=== PATIENT | male | born 1965 | race Caucasian/White ===

== ENCOUNTER 2023-02-14 19:08 | Inpatient (IN) | payer MEDICARE, OTHER ==
[~2023-02-14] VITALS: Ht 172.7 cm; Wt 81.2 kg
[2023-02-14] MEDS ORDERED: FUROSEMIDE 40MG/4ML VIAL IV ONE (19:30)
[2023-02-14] MEDS ORDERED: NITROGLYCERIN OINT 1GM/INCH UDPKT TD ONE (19:30)
[2023-02-14] MEDS ORDERED: LABETALOL HCL VIAL 20 MG/4 ML VIAL IV ONE (19:30)
[2023-02-14 19:31] LABS: BASOPHILS % 0.4 % (0.0-2.0); EOSINOPHILS % 2.6 % (0.0-5.0); HEMATOCRIT. 32.8 % (42.0-52.0); HEMOGLOBIN. 10.7 g/dL (14.0-18.0); LYMPHOCYTES % 22.5 % (20.0-50.0); MEAN CORPUSCULAR HEMOGLOBIN 30.5 pg (28.0-32.0); MEAN CORPUSCULAR VOLUME 93.9 fL (80.0-94.0); MEAN PLATELET VOLUME 8.8 fl (7.4-10.4); MONOCYTES % 11.1 % (2.0-8.0); NEUTROPHILS % 63.4 % (40.0-76.0); PLATELET 166 x1000/uL (130-400); RED BLOOD CELL COUNT 3.49 mill/uL (4.7-6.1); RED CELL DISTRIBUTION WIDTH 16.1 % (11.6-14.6)
[2023-02-14 19:38] LABS: CHLORIDE 114 mEq/L (98-107)
[2023-02-14] MEDS ORDERED: LABETALOL 5MG/ML SYR 20 MG/4 ML SYRINGE IV NR (19:45)
[2023-02-14 19:47] LABS: BG BASE EXCESS -4.9 mmol/L (-2.0-2.0); BG CARBOXYHEMOGLOBIN 0.6 % (0.5-1.5); BG DEOXYHEMOGLOBIN 1.1 % (0.0-5.0); BG FRACTION INSPIRED OXYGEN 50; BG HCO3 ACT 20.1 mmol/L (22.0-26.0); BG METHEMOGLOBIN 0.4 % (0.0-1.5); BG OXYGEN SATURATION 98.9 % (92.0-98.5); BG OXYHEMOGLOBIN 97.9 % (94.0-97.0); BG PCO2 37.4 mmHg (35.0-45.0); BG PH 7.349 (7.350-7.450); BG PO2 144.2 mmHg (75.0-100.0); BG TOTAL HEMOGLOBIN 11.3 g/dL (12.0-18.0); BG TOTAL RESPIRATORY RATE 22 b/min; BG VENT MODE MASK - BIPAP
[2023-02-15] VITALS (17 sets, daily range): BP systolic 132–173; BP diastolic 76–120
[2023-02-15 08:36] LABS: BASOPHILS % 0.4 % (0.0-2.0); EOSINOPHILS % 3.9 % (0.0-5.0); HEMATOCRIT. 31.2 % (42.0-52.0); HEMOGLOBIN. 10.3 g/dL (14.0-18.0); LYMPHOCYTES % 25.4 % (20.0-50.0); MEAN CORPUSCULAR HEMOGLOBIN 30.8 pg (28.0-32.0); MEAN CORPUSCULAR VOLUME 93.1 fL (80.0-94.0); MEAN PLATELET VOLUME 8.8 fl (7.4-10.4); MONOCYTES % 13.5 % (2.0-8.0); NEUTROPHILS % 56.8 % (40.0-76.0); PLATELET 148 x1000/uL (130-400); RED BLOOD CELL COUNT 3.35 mill/uL (4.7-6.1)
[2023-02-15] MEDS: FUROSEMIDE 40MG/4ML VIAL IVP SCH ×2 (08:49→17:17)
[2023-02-15] MEDS ORDERED: ENOXAPARIN 30MG/0.3ML SYR SUBCUT SCH (09:00)
[2023-02-15] MEDS ORDERED: PIPERACILLIN/TAZ 3.375G PREMIX 50 ML IV SCH (12:45)
[2023-02-15] MEDS ORDERED: ACETAMINOPHEN 325MG TABLET PO PRN (12:45)
[2023-02-15] MEDS ORDERED: CLONIDINE 0.1MG TABLET PO PRN (12:45)
[2023-02-15] MEDS ORDERED: ONDANSETRON HCL 4MG/2ML INJ IV PRN (12:45)
[2023-02-15 12:46] LABS: BG BASE EXCESS 1.5 mmol/L (-2.0-2.0); BG CARBOXYHEMOGLOBIN 0.9 % (0.5-1.5); BG DEOXYHEMOGLOBIN 1.5 % (0.0-5.0); BG FRACTION INSPIRED OXYGEN 50; BG HCO3 ACT 26.5 mmol/L (22.0-26.0); BG METHEMOGLOBIN 0.3 % (0.0-1.5); BG OXYGEN SATURATION 98.5 % (92.0-98.5); BG OXYHEMOGLOBIN 97.3 % (94.0-97.0); BG PCO2 43.4 mmHg (35.0-45.0); BG PH 7.404 (7.350-7.450); BG PO2 122.7 mmHg (75.0-100.0); BG SAMPLE SITE RIGHT RADIAL; BG TOTAL HEMOGLOBIN 12.2 g/dL (12.0-18.0); BG VENT MODE MASK - BIPAP
[2023-02-15] MEDS: DEXT 5%/0.45% NACL 1000ML 1,000 ML IV SCH (13:36)
[2023-02-15] MEDS: PIPERACILLIN/TAZOBACTAM 3.375G in DEXT 5% WATER 50ML IV SCH ×2 (14:54→22:33)
[2023-02-15] MEDS: IPRATROPIUM/ALBUTEROL 0.5-3(2.5)MG/3ML NEB HHN SCH ×2 (15:42→20:42)
[2023-02-15] MEDS ORDERED: HYDRALAZINE 20MG/ML VIAL IV PRN (16:15)
[2023-02-15] MEDS: LOSARTAN POTASSIUM 50 MG TABLET PO SCH (17:17)
[2023-02-15] MEDS ORDERED: VANCOMYCIN 1,750 MG in DEXT 5% WATER 500 ML IV SCH (18:30)
[2023-02-15] MEDS ORDERED: DEXTROSE 50% WATER 50ML SYRINGE IV PRN (20:15)
[2023-02-15] MEDS: INSULIN LISPRO 100 UNITS/ML SUBCUT SCH (21:00)
[2023-02-15] MEDS: BLOOD SUGAR DIAGNOSTIC STRIP TEST SCH (21:00)
[2023-02-16] VITALS (15 sets, daily range): BP systolic 109–162; BP diastolic 59–92
[2023-02-16] MEDS: IPRATROPIUM/ALBUTEROL 0.5-3(2.5)MG/3ML NEB HHN SCH ×5 (00:30→20:00)
[2023-02-16 01:13] LABS: CREATINE KINASE MB FRACTION 2.4 ng/mL (0.5-3.6)
[2023-02-16] MEDS: PIPERACILLIN/TAZOBACTAM 3.375G in DEXT 5% WATER 50ML IV SCH ×3 (05:22→21:12)
[2023-02-16 06:28] LABS: BASOPHILS % 0.5 % (0.0-2.0); EOSINOPHILS % 5.6 % (0.0-5.0); HEMOGLOBIN. 11.1 g/dL (14.0-18.0); MEAN CORPUSCULAR HEMOGLOBIN 30.9 pg (28.0-32.0); MEAN CORPUSCULAR VOLUME 91.9 fL (80.0-94.0); MEAN PLATELET VOLUME 8.4 fl (7.4-10.4); MONOCYTES % 11.4 % (2.0-8.0); NEUTROPHILS % 61.5 % (40.0-76.0); PLATELET 150 x1000/uL (130-400); RED BLOOD CELL COUNT 3.59 mill/uL (4.7-6.1); RED CELL DISTRIBUTION WIDTH 15.8 % (11.6-14.6)
[2023-02-16] MEDS ORDERED: VANCOMYCIN 750MG PREMIX 150 ML IV SCH (07:00)
[2023-02-16] MEDS: BLOOD SUGAR DIAGNOSTIC STRIP TEST SCH ×4 (07:30→21:11)
[2023-02-16] MEDS: INSULIN LISPRO 100 UNITS/ML SUBCUT SCH ×4 (08:00→21:00)
[2023-02-16 08:03] LABS: BG BASE EXCESS 5.7 mmol/L (-2.0-2.0); BG CARBOXYHEMOGLOBIN 0.4 % (0.5-1.5); BG DEOXYHEMOGLOBIN 5.4 % (0.0-5.0); BG METHEMOGLOBIN 0.1 % (0.0-1.5); BG OXYGEN SATURATION 94.6 % (92.0-98.5); BG OXYHEMOGLOBIN 94.1 % (94.0-97.0); BG PCO2 42.5 mmHg (35.0-45.0); BG PH 7.467 (7.350-7.450); BG PO2 71.8 mmHg (75.0-100.0); BG SAMPLE SITE RIGHT RADIAL; BG TOTAL HEMOGLOBIN 11.3 g/dL (12.0-18.0); BG VENT MODE ROOM AIR
[2023-02-16] MEDS: LOSARTAN POTASSIUM 50 MG TABLET PO SCH (10:00)
[2023-02-16] MEDS ORDERED: POTASSIUM CHLORIDE 20MEQ TABLET SR PO NR (10:00)
[2023-02-16] MEDS: FUROSEMIDE 40MG/4ML VIAL IVP SCH ×2 (10:00→18:30)
[2023-02-16] MEDS: ENOXAPARIN 40MG/0.4ML SYR SUBCUT SCH (10:00)
[2023-02-16] MEDS: DEXT 5%/0.45% NACL 1000ML 1,000 ML IV SCH ×2 (10:01→21:14)
[2023-02-16] MEDS: VANCOMYCIN 1G PREMIX 200 ML IV SCH (14:12)
[2023-02-16] MEDS ORDERED: MENTHOL/LANOLIN/CALAMINE/ZN OX OINT 71GM TOP PRN (15:00)
[2023-02-16 21:49] LABS: ETHANOL BLOOD < 10 mg/dL; T4 FREE 1.17 ng/dL (0.76-1.46)
[2023-02-16 22:08] LABS: FOLIC ACID (FOLATE) SERUM 16.8 ng/mL (>5.38)
[2023-02-17] VITALS (14 sets, daily range): BP systolic 122–151; BP diastolic 65–98
[2023-02-17] MEDS: IPRATROPIUM/ALBUTEROL 0.5-3(2.5)MG/3ML NEB HHN SCH ×6 (00:09→20:27)
[2023-02-17] MEDS: VANCOMYCIN 1G PREMIX 200 ML IV SCH (06:03)
[2023-02-17] MEDS: PIPERACILLIN/TAZOBACTAM 3.375G in DEXT 5% WATER 50ML IV SCH ×3 (06:04→22:51)
[2023-02-17 06:15] LABS: BASOPHILS % 0.4 % (0.0-2.0); EOSINOPHILS % 5.9 % (0.0-5.0); HEMATOCRIT. 32.1 % (42.0-52.0); HEMOGLOBIN. 10.9 g/dL (14.0-18.0); LYMPHOCYTES % 33.7 % (20.0-50.0); MEAN CORPUSCULAR VOLUME 91.5 fL (80.0-94.0); MEAN PLATELET VOLUME 8.5 fl (7.4-10.4); MONOCYTES % 14.4 % (2.0-8.0); NEUTROPHILS % 45.6 % (40.0-76.0); PLATELET 145 x1000/uL (130-400); RED BLOOD CELL COUNT 3.51 mill/uL (4.7-6.1); RED CELL DISTRIBUTION WIDTH 15.5 % (11.6-14.6)
[2023-02-17] MEDS: BLOOD SUGAR DIAGNOSTIC STRIP TEST SCH ×4 (07:30→22:50)
[2023-02-17] MEDS: INSULIN LISPRO 100 UNITS/ML SUBCUT SCH ×4 (08:00→21:00)
[2023-02-17] MEDS: LOSARTAN POTASSIUM 50 MG TABLET PO SCH (10:18)
[2023-02-17] MEDS: FUROSEMIDE 40MG/4ML VIAL IVP SCH ×2 (10:18→19:24)
[2023-02-17] MEDS: ENOXAPARIN 40MG/0.4ML SYR SUBCUT SCH (10:20)
[2023-02-17] MEDS: DEXT 5%/0.45% NACL 1000ML 1,000 ML IV SCH (14:31)
[2023-02-17] MEDS ORDERED: LEVO750T68 MT (15:14)
[2023-02-17] MEDS ORDERED: FURO-151 MT (15:14)
[2023-02-18] VITALS: BP 120/79
[2023-02-18] MEDS: IPRATROPIUM/ALBUTEROL 0.5-3(2.5)MG/3ML NEB HHN SCH ×6 (00:07→21:02)
[2023-02-18] MEDS: VANCOMYCIN 1G PREMIX 200 ML IV SCH ×2 (00:30→17:40)
[2023-02-18 04:00] VITALS: BP 118/67
[2023-02-18] MEDS: PIPERACILLIN/TAZOBACTAM 3.375G in DEXT 5% WATER 50ML IV SCH ×3 (05:05→21:07)
[2023-02-18] MEDS: BLOOD SUGAR DIAGNOSTIC STRIP TEST SCH ×4 (07:41→21:00)
[2023-02-18] MEDS: INSULIN LISPRO 100 UNITS/ML SUBCUT SCH ×4 (07:41→21:00)
[2023-02-18 08:00] VITALS: BP 144/97
[2023-02-18 09:03] LABS: BG BASE EXCESS 5.5 mmol/L (-2.0-2.0); BG CARBOXYHEMOGLOBIN 1.2 % (0.5-1.5); BG DEOXYHEMOGLOBIN 3.8 % (0.0-5.0); BG FRACTION INSPIRED OXYGEN 21; BG HCO3 ACT 29.7 mmol/L (22.0-26.0); BG METHEMOGLOBIN 0.3 % (0.0-1.5); BG OXYGEN SATURATION 96.1 % (92.0-98.5); BG OXYHEMOGLOBIN 94.7 % (94.0-97.0); BG PCO2 42.2 mmHg (35.0-45.0); BG PH 7.466 (7.350-7.450); BG PO2 81.3 mmHg (75.0-100.0); BG SAMPLE SITE LEFT RADIAL; BG TOTAL HEMOGLOBIN 12.6 g/dL (12.0-18.0); BG VENT MODE ROOM AIR
[2023-02-18 09:09] LABS: ABSOLUTE EOSINOPHILS 0.2 x10E3/uL (0.0-0.4); ABSOLUTE LYMPHOCYTES 1.2 x10E3/uL (0.7-3.1); ABSOLUTE MONOCYTES 0.5 x10E3/uL (0.1-0.9); ABSOLUTE NEUTROPHILS 3.2 x10E3/uL (1.4-7.0); BASOPHILS 0 % (Not Estab.); HEMOGLOBIN 10.9 g/dL (13.0-17.7); IMMATURE GRANULOCYTES 0 % (Not Estab.); LYMPHOCYTES 24 % (Not Estab.); MEAN CORPUSCULAR HEMOGLOBIN 29.7 pg (26.6-33.0); MEAN CORPUSCULAR HGB CONC. 31.1 g/dL (31.5-35.7); MEAN CORPUSCULAR VOLUME 95 fL (79-97); MONOCYTES 9 % (Not Estab.); NEUTROPHILS 63 % (Not Estab.); PLATELETS 161 x10E3/uL (150-450); RBC 3.67 x10E6/uL (4.14-5.80); RED CELL DISTRIBUTION WIDTH 13.7 % (11.6-15.4); WBC 5.2 x10E3/uL (3.4-10.8)
[2023-02-18] MEDS: FUROSEMIDE 40MG/4ML VIAL IVP SCH ×2 (09:47→17:39)
[2023-02-18] MEDS: ENOXAPARIN 40MG/0.4ML SYR SUBCUT SCH (09:47)
[2023-02-18] MEDS: LOSARTAN POTASSIUM 50 MG TABLET PO SCH (09:47)
[2023-02-18] MEDS: DEXT 5%/0.45% NACL 1000ML 1,000 ML IV SCH ×2 (09:48→23:11)
[2023-02-18 10:43] LABS: CHLORIDE 100 mEq/L (98-107)
[2023-02-18 12:00] VITALS: BP 122/73
[2023-02-18 13:07] LABS: % CD 3 POS. LYMPHOCYTES 91.1 % (57.5-86.2); % CD 4 POS. LYMPHOCYTES 27.1 % (30.8-58.5); % CD 8 POS. LYMPH 65.9 % (12.0-35.5); ABSOLUTE CD 3 1093 /uL (622-2402); ABSOLUTE CD 4 HELPER 325 /uL (359-1519); ABSOLUTE CD 8 SUPPRESSOR 791 /uL (109-897); CD4/CD8 RATIO 0.41 (0.92-3.72)
[2023-02-18 16:00] VITALS: BP 129/74
[2023-02-18 20:00] VITALS: BP 108/63
[2023-02-19] VITALS: BP 112/76
[2023-02-19] MEDS: IPRATROPIUM/ALBUTEROL 0.5-3(2.5)MG/3ML NEB HHN SCH ×6 (00:05→21:02)
[2023-02-19 04:30] VITALS: BP 137/63
[2023-02-19] MEDS: PIPERACILLIN/TAZOBACTAM 3.375G in DEXT 5% WATER 50ML IV SCH ×3 (05:17→20:53)
[2023-02-19] MEDS: BLOOD SUGAR DIAGNOSTIC STRIP TEST SCH ×4 (06:40→20:41)
[2023-02-19 08:00] VITALS: BP 133/77
[2023-02-19] MEDS: INSULIN LISPRO 100 UNITS/ML SUBCUT SCH ×4 (08:05→20:49)
[2023-02-19] MEDS: ENOXAPARIN 40MG/0.4ML SYR SUBCUT SCH (09:21)
[2023-02-19] MEDS: FUROSEMIDE 40MG/4ML VIAL IVP SCH (09:21)
[2023-02-19] MEDS: LOSARTAN POTASSIUM 50 MG TABLET PO SCH (09:21)
[2023-02-19] MEDS ORDERED: POTASSIUM CHLORIDE 20MEQ TABLET SR PO NR (10:00)
[2023-02-19 12:00] VITALS: BP 121/52
[2023-02-19] MEDS: VANCOMYCIN 1G PREMIX 200 ML IV SCH (12:08)
[2023-02-19 16:00] VITALS: BP 146/47
[2023-02-19 20:00] VITALS: BP 127/78
[2023-02-19] MEDS: DEXT 5%/0.45% NACL 1000ML 1,000 ML IV SCH (20:50)
[2023-02-20] VITALS: BP 130/71
[2023-02-20] MEDS: IPRATROPIUM/ALBUTEROL 0.5-3(2.5)MG/3ML NEB HHN SCH ×3 (01:19→11:42)
[2023-02-20 04:00] VITALS: BP 115/64
[2023-02-20] MEDS: VANCOMYCIN 1G PREMIX 200 ML IV SCH (05:25)
[2023-02-20] MEDS: PIPERACILLIN/TAZOBACTAM 3.375G in DEXT 5% WATER 50ML IV SCH (05:25)
[2023-02-20] MEDS: BLOOD SUGAR DIAGNOSTIC STRIP TEST SCH ×2 (06:41→12:45)
[2023-02-20] MEDS: INSULIN LISPRO 100 UNITS/ML SUBCUT SCH ×2 (06:42→12:45)
[2023-02-20 08:00] VITALS: BP 135/69
[2023-02-20] MEDS ORDERED: FUROSEMIDE 40MG/4ML VIAL IVP SCH (08:00)
[2023-02-20] MEDS: LOSARTAN POTASSIUM 50 MG TABLET PO SCH (09:55)
[2023-02-20] MEDS: ENOXAPARIN 40MG/0.4ML SYR SUBCUT SCH (09:55)
[2023-02-20] MEDS: DEXT 5%/0.45% NACL 1000ML 1,000 ML IV SCH (09:58)
[2023-02-20 12:10] VITALS: BP 128/72
== END 2023-02-20 15:10 | disposition home or self-care (01) | DRG 91 ==
LOC: ER 19:08 → MICUSO 21:59 → EDBEDREQ 22:03 → 5EST 23:54 → 7WST 02-18 00:08
PROVIDERS: ADMIT Internal Medicine; ATTEND Internal Medicine
PROC: 5A09357 Assistance with Respiratory Ventilation, Less than 24 Consecutive Hours, Continuous Positive Airway Pressure (ICD-10-PCS; principal; 2023-02-14)
PROC: 5A09357 Assistance with Respiratory Ventilation, Less than 24 Consecutive Hours, Continuous Positive Airway Pressure (ICD-10-PCS; 2023-02-15)
PROC: 4A00X4Z Measurement of Central Nervous Electrical Activity, External Approach (ICD-10-PCS; 2023-02-17)
DX: G92.8 Other toxic encephalopathy (principal); I50.41 Acute combined systolic (congestive) and diastolic (congestive) heart failure; J96.01 Acute respiratory failure with hypoxia; J18.9 Pneumonia, unspecified organism; I13.0 Hypertensive heart and chronic kidney disease with heart failure and stage 1 through stage 4 chronic kidney disease, or unspecified chronic kidney disease; I42.9 Cardiomyopathy, unspecified; E87.20 Acidosis, unspecified; J81.1 Chronic pulmonary edema; I16.1 Hypertensive emergency; E11.22 Type 2 diabetes mellitus with diabetic chronic kidney disease; D63.1 Anemia in chronic kidney disease; J44.9 Chronic obstructive pulmonary disease, unspecified; N18.30 Chronic kidney disease, stage 3 unspecified; I44.4 Left anterior fascicular block; E87.6 Hypokalemia; Z99.81 Dependence on supplemental oxygen; Z86.73 Personal history of transient ischemic attack (TIA), and cerebral infarction without residual deficits; Z21 Asymptomatic human immunodeficiency virus [HIV] infection status
CPT/HCPCS: 36415; 36600; 70551; 71045; 72170; 80048; 80053; 80202; 80320; 82140; 82375; 82550; 82553; 82607; 82746; 82805; 82962; 83036; 83880; 84145; 84439; 84443; 84481; 84484; 85025; 86359; 86360; 93005; 93306; 93970; 94640; 94660; 97162; 99291; A6261; C1893; J1650; J1940; J2543; J3370; J3490; J7060; G0480